=== PATIENT | female | born 1940 | race Caucasian/White ===

== ENCOUNTER 2022-02-01 14:11 | Observation (INO) ==
[2022-02-01 15:14] LABS: Basophils % 0.5 % (0.0-0.8); Eosinophils # 0.1 10*3/uL (0.0-0.87); Eosinophils % 1.9 % (0.00-10.9); Hematocrit 41.2 VOL% (35.7-47.0); Hemoglobin 13.5 GM/DL (12.0-16.0); Immature Granulocytes % 0.4 %; Immature Granulocytes Absolute 0.02 #; Lymphocytes # 1.4 10*3/uL (1.4-4.0); Lymphocytes % 24.7 % (21.3-54.2); Mean Corpuscular HGB Conc 32.8 GM/DL (32-36); Mean Corpuscular Volume 88.4 FL (87-102); Mean Platelet Volume 10.5 FL (9.6-12.0); Monocytes # 0.4 10*3/uL (0.11-0.8); Monocytes % 7.6 % (1.7-12.7); Neutrophils % 64.9 % (38.7-73.9); Platelet Count 220 T/CUMM (130-400); Red Blood Count 4.66 MC/CUMM (3.8-5.5); Red Cell Distribution Width 13.6 % (9.3-17.3); White Blood Count 5.7 T/CUMM (4-12)
[2022-02-01 15:19] LABS: Bilirubin,Total 0.4 MG/DL (0.20-1.00); Calcium 9.6 MG/DL (8.5-10.1); Osmolality,Calculated 278.4 MOS/KG (273-304); Potassium 4.3 MMOL/L (3.5-5.1); Total Protein 7.2 G/DL (6.4-8.2)
[2022-02-01] MEDS ORDERED: ONDANSETRON 4 MG/2 ML VIAL IV STA (18:14)
[2022-02-01] MEDS ORDERED: hydrALAZINE 10 MG TABLET PO STA (18:18)
[2022-02-01] MEDS ORDERED: ONDANSETRON 4 MG/2 ML VIAL IV PRN (20:07)
[2022-02-01] MEDS ORDERED: DEXTROSE 10% 250 ML BAG IV PRN (20:07)
[2022-02-01] MEDS ORDERED: NITROGLYCERIN SL 0.4 MG TABLET SL PRN (20:07)
[2022-02-01] MEDS ORDERED: GLUCAGON 1 MG VIAL IM PRN (20:07)
[2022-02-01] MEDS ORDERED: ALUMINUM/MAGNES/SIMETH MAX STR 30 ML UDCUP PO PRN (20:44)
[2022-02-01] MEDS ORDERED: ENOXAPARIN 40 MG/0.4 ML SYRINGE SUBCUT SCH (21:00)
[2022-02-02 05:19] LABS: Basophils % 0.6 % (0.0-0.8); Eosinophils # 0.1 10*3/uL (0.0-0.87); Eosinophils % 2.5 % (0.00-10.9); Hematocrit 38.7 VOL% (35.7-47.0); Hemoglobin 12.9 GM/DL (12.0-16.0); Immature Granulocytes % 0.4 %; Immature Granulocytes Absolute 0.02 #; Lymphocytes # 1.4 10*3/uL (1.4-4.0); Lymphocytes % 29.9 % (21.3-54.2); Mean Corpuscular HGB Conc 33.3 GM/DL (32-36); Mean Platelet Volume 10.3 FL (9.6-12.0); Monocytes # 0.4 10*3/uL (0.11-0.8); Monocytes % 7.6 % (1.7-12.7); Platelet Count 172 T/CUMM (130-400); Red Blood Count 4.45 MC/CUMM (3.8-5.5); Red Cell Distribution Width 13.5 % (9.3-17.3); White Blood Count 4.8 T/CUMM (4-12)
[2022-02-02 05:20] LABS: PT Patient Result 10.7 SECS (10.1-12.1)
[2022-02-02 05:47] LABS: Blood Urea Nitrogen 15 MG/DL (7-18); Calcium 9.4 MG/DL (8.5-10.1); Carbon Dioxide 25 MMOL/L (21-32); Chloride 107 MMOL/L (98-107); Cholesterol 164 MG/DL (50-200); Glucose 93 MG/DL (74-106); HDL Cholesterol 51 MG/DL (40-60); Osmolality,Calculated 281.3 MOS/KG (273-304); Potassium 3.7 MMOL/L (3.5-5.1); Risk Ratio 3.22; Sodium 141 MMOL/L (136-145); Triglycerides 121 MG/DL (2-150); VLDL Cholesterol 24.2 MG/DL
[2022-02-02] MEDS: ALUMINUM/MAGNES/SIMETH MAX STR 30 ML UDCUP PO SCH ×3 (09:58→20:10)
[2022-02-02] MEDS: PANTOPRAZOLE 40 MG TABLET PO SCH (12:19)
[2022-02-02] MEDS: CHLORTHALIDONE 25 MG TABLET PO SCH (12:19)
[2022-02-03] MEDS: ALUMINUM/MAGNES/SIMETH MAX STR 30 ML UDCUP PO SCH ×3 (01:12→14:14)
[2022-02-03] MEDS ORDERED: LACTATED RINGERS 1,000 ML IV SCH (08:00)
[2022-02-03] MEDS: CHLORTHALIDONE 25 MG TABLET PO SCH (09:28)
[2022-02-03] MEDS ORDERED: propofoL 200 MG/20 ML VIAL IV ONE (12:23)
[2022-02-03 13:01] VITALS: BP 138/76
[2022-02-03] MEDS: PANTOPRAZOLE 40 MG TABLET PO SCH (14:13)
== END 2022-02-03 16:15 | disposition home or self-care (01) ==
LOC: N.EDINP 14:11 → N.ED 14:11 → SUATTDRO 20:07 → N.EDINP 02-02 00:23 → N.TELES 02-02 00:57
PROVIDERS: ADMIT Internal Medicine; ATTEND Internal Medicine